=== PATIENT | female | born 1965 | race Caucasian/White ===

== ENCOUNTER 2017-04-01 12:03 | Observation (INO) | payer BC ==
[2017-04-01] MEDS ORDERED: Aspirin Low Dose CHEW TAB* 81 MG PO ONE (12:37)
[2017-04-01] MEDS: Nitroglycerin TAB 0.4 MG* 0.4 MG TAB SL ONE ×2 (12:43→12:53)
[2017-04-01 12:52] LABS: ABS Basophils 0 10^3/ul (0-0.2); ABS Eosinophils 0 10^3/ul (0-0.6); ABS Lymphocytes 1.8 10^3/ul (1.0-4.8); ABS Monocytes 0.4 10^3/ul (0-0.8); ABS Neutrophils 5.9 10^3/ul (1.5-7.7); ABS Nucleated RBC 0 10^3/ul; Eosinophil % 0.2 % (0-6); Hematocrit 45 % (35-47); Hemoglobin 15.5 g/dl (12.0-16.0); Lymphocyte % 21.7 % (25-47); Mean Corpuscular HGB Conc 35 g/dl (31-36); Mean Corpuscular Hemoglobin 29 pg (27-31); Mean Corpuscular Volume 84 fL (80-97); Mean Platelet Volume 9 um3 (7.4-10.4); Nucleated Red Blood Cells % 0.1; Platelet Count 308 10^3/ul (150-450); Red Blood Count 5.34 10^6/ul (4.0-5.4); Red Cell Distribution Width 14 % (10.5-15); White Blood Count 8.1 10^3/ul (3.5-10.8)
[2017-04-01 13:05] LABS: EGFR Non-African American 65.8 (>60)
[2017-04-01] MEDS ORDERED: Iodixanol* (CONTRAST) 320 MG/ML 100 ML SDV IV ONE (13:11)
--- NOTE | 2017-04-01 13:19 | RAD ---
HISTORY: chest pain COMPARISONS: None VIEWS: 1: frontal portable view of the chest at 12:20 PM FINDINGS: LINES AND TUBES: None. CARDIOMEDIASTINAL SILHOUETTE: The cardiomediastinal silhouette is normal for portable technique. PLEURA: The costophrenic angles are sharp. No pleural abnormalities are noted. LUNG PARENCHYMA: The lungs are clear. ABDOMEN: The upper abdomen is clear. There is no subphrenic gas. BONES AND SOFT TISSUES: No bone or soft tissue abnormalities are noted. IMPRESSION: NO ACTIVE CARDIOPULMONARY DISEASE.
--- NOTE | 2017-04-01 13:43 | RAD ---
INDICATION: Chest pain evaluate for pulmonary embolus. COMPARISON: Comparison is made with a prior chest x-ray study from April 01, 2017. TECHNIQUE: A CT angiogram of the chest was performed with intravenous following intravenous injection of 84 ml of Visipaque 320 nonionic contrast. Contiguous axial sections were obtained from the lung apices through the lung bases. Images were reconstructed in the coronal and sagittal planes. FINDINGS: There is relatively homogeneous opacification of the pulmonary arteries. No intraluminal filling defect or pulmonary embolism is seen. The heart is within normal limits in size. No pericardial effusion is present. The thoracic aorta is normal in caliber and demonstrates homogeneous contrast opacification. No significant enlarged mediastinal or hilar lymph nodes are seen. There is mild dependent bilateral lower lobe subsegmental atelectasis. The lungs are otherwise clear. No pleural effusion or pneumothorax is seen. Images of the upper abdomen demonstrate fatty infiltration of the liver. No acute finding is seen. No significant focal osseous abnormality is seen. IMPRESSION: 1. NO EVIDENCE FOR PULMONARY EMBOLISM. 2. FATTY INFILTRATION OF THE LIVER.
[2017-04-01] MEDS ORDERED: Nitroglycerin 2% OINT* 1 GM PAK TOPICAL ONE (14:18)
[2017-04-01] MEDS ORDERED: oxyCODONE/Acetamin 5/325 MG* TAB PO ONE (17:40)
[2017-04-01] MEDS ORDERED: Acetaminophen TAB* 325 MG PO PRN (17:40)
[2017-04-01] MEDS: NS 0.9% 1000 ML* 1,000 ML IV SCH ×2 (19:17→20:32)
[2017-04-01] MEDS: Heparin VIAL(*) 5000 UNITS/ML VIAL (FIVE THOUSAND) SUBCUT SCH (20:56)
--- NOTE | 2017-04-01 21:31 | HP ---
CC: Dr. Hans Munoz; Dr. Yoon, Cardiology, [place], [place]* HISTORY AND PHYSICAL: DATE OF ADMISSION: 04/01/17 PRIMARY CARE PROVIDER: Dr. Hans Munoz. CHIEF COMPLAINT: Chest pain. HISTORY OF PRESENT ILLNESS: Yee Galicia is a 51-year-old female with history of obesity, diabetes, hypertension who presents to [facility] complaining of chest pain. The patient stated that initially chest pain occurred with exercise when she was shoveling snow a couple of days ago. She stated it resolved after she stopped shoveling snow and she was okay until today when she was sitting at the desk at her work place and started developing chest pain. This chest pain was localized in the left shoulder, radiating to the left jaw and her left chest. That occurred together with shortness of breath, lasted approximately a couple of hours, and resolved after aspirin and nitroglycerin that she received in the emergency department. The patient is going to be placed on overnight observation with a diagnosis of chest pain, to rule out angina. PAST MEDICAL HISTORY: Includes: 1. History of nonobstructive coronary artery disease with cardiac catheterization in 2016 in [facility] in [place], which showed stenosis of 30% to 50% of coronary arteries. 2. History of diabetes type 2. 3. Hypertension. 4. Dyslipidemia. 5. Obesity. 6. Status post cholecystectomy. 7. History of lower back surgery and diskectomy. 8. History of ovarian cyst resection in the 1980s. MEDICATIONS: Include: 1. Aspirin 81 mg daily. 2. Lisinopril/hydrochlorothiazide 20/25 mg daily. 3. Lipitor 80 mg daily. 4. Metformin 1000 mg b.i.d. ALLERGIES: NITROFURANTOIN. FAMILY HISTORY: Positive for father who of complication of prostate cancer in his 70s. Mother suddenly at the age of 64 of "natural causes." She has history of mitral valve prolapse. SOCIAL HISTORY: The patient denies tobacco, alcohol or drug use. She works in an office. Her surrogate is her . REVIEW OF SYSTEMS: Please see history of present illness. The patient said that she went through "walking pneumonia" within the past month and she still has occasional dry cough. She stated that she was treated with antibiotics for that. All the remaining 12 systems were reviewed with the patient and were otherwise negative. PHYSICAL EXAMINATION GENERAL: The patient is a very pleasant 51-year-old female with a BMI of 36. The patient is in no acute distress. Alert, awake and oriented x3. VITAL SIGNS: Blood pressure 114/76, heart rate of 100 and regular, respiratory rate 21, oxygen saturation 95% on room air, temperature of 98.4. HEENT: Head: Atraumatic, normocephalic. Eyes: Pupils equal, round, and reactive to light and accommodation. Oropharynx clear. Mucosa moist. NECK: Supple. No JVD. No bruits bilaterally. RESPIRATORY: Clear to auscultation bilaterally. CARDIOVASCULAR: Regular rate and rhythm. No murmur. ABDOMEN: Soft and nontender. Bowel sounds present in all 4 quadrants. EXTREMITIES: There is no edema. Pulses +2 bilaterally. There is no clubbing, cyanosis. NEUROLOGIC: Speech clear. Cranial nerves II through XII grossly intact. Motor strength is 5/5 bilaterally. LABORATORY DATA AND STUDIES PERFORMED DURING THE HOSPITAL STAY: Included: CT angiogram performed in the ED shows "no evidence of pulmonary embolism. Fatty infiltration of the liver." Sodium was 135, potassium 3.8, chloride 100, carbon dioxide 21, BUN 16, creatinine of 0.9. Lactic acid of 2.4. Liver function is unremarkable. Troponin of 0. CBC: White blood cell count of 8.1, hemoglobin 15.5, hematocrit of 45 and platelets of 308,000. The patient's EKG showed sinus tachycardia with heart rate of 114 beats per minute with no ST changes. ASSESSMENT AND PLAN: 1. In regards to the patient's exertional chest pain, the patient is going to be placed in overnight observation with telemetry monitored bed. The patient will undergo a treadmill Myoview stress test in the morning. The patient has history of nonobstructive coronary artery disease in 2016. We will continue aspirin for the time being. 2. In regards to the patient's dyslipidemia, Lipitor is going to be continued and fasting lipid profile is going to be obtained in the morning. 3. In regards to the patient's diabetes, the patient had been on metformin. It appears that her lactic acid is mildly elevated, could be due to metformin. That is going to be held. She is going to be placed on insulin lispro sliding scale. I will check lactic acid level within the next hour. 4. For DVT prophylaxis, the patient is at low risk and ambulation is going to be encouraged. 5. The patient's code status is full and her surrogate is her . TIME SPENT: Approximately 55 minutes was spent on admission of this patient, more than half that time was spent [id number] with the patient doing the interview and physical exam. [id number]/[facility] #: [id number] MTDD
[2017-04-02] MEDS: Heparin VIAL(*) 5000 UNITS/ML VIAL (FIVE THOUSAND) SUBCUT SCH ×2 (05:48→14:35)
[2017-04-02 06:31] LABS: EGFR Non-African American 70.2 (>60)
[2017-04-02] MEDS ORDERED: Lisinopril/HCTZ 20/25(NF) TAB PO SCH (09:00)
[2017-04-02] MEDS ORDERED: Atorvastatin* 80 MG TAB PO SCH (09:00)
[2017-04-02] MEDS ORDERED: Hydrochlorothiazide TAB* 25 MG PO SCH (09:00)
[2017-04-02] MEDS ORDERED: Lisinopril TAB* 10 MG PO SCH (09:00)
--- NOTE | 2017-04-02 13:39 | RAD ---
INDICATION: Chest pain COMPARISON: CTA chest previous day TECHNIQUE: A single day SPECT protocol was utilized. Rest images were acquired following the intravenous injection of 10.2 millicuries of technetium 99m tetrofosmin. Pharmacologic stress images were acquired following the intravenous administration of 25.7 millicuries of technetium 99m tetrofosmin. The patient was exercised to a peak heart rate of 160 which is 95 of age predicted maximum. FINDINGS: There are no defects of the stress-induced or fixed nature. The cardiac chamber size is normal. There are no wall motion abnormalities. The ejection fraction is calculated at 81 percent during stress. IMPRESSION: NORMAL STUDY ASSESSMENT: LOW-RISK Based on imaging criteria from ACC/AHA 2002 Guideline Update for the Management of Patients With Chronic Stable Angina Table 23. Noninvasive Risk Stratification.
[2017-04-02 15:39] VITALS: BP 110/54
--- NOTE | 2017-04-03 02:25 | DS ---
CC: Dr. Munoz * DISCHARGE SUMMARY: DATE OF ADMISSION: 04/01/17 DATE OF DISCHARGE: 04/02/17 PRIMARY CARE PROVIDER: Dr. Munoz. DISCHARGE DIAGNOSIS: Chest pain with low probability cardiac stress test documented on 04/02/17. SECONDARY DIAGNOSES: 1. History of nonobstructive coronary artery disease with stenosis of 30% to 50 % documented on cardiac catheterization in 2016. 2. History of diabetes type 2. 3. Dyslipidemia. 4. Hypertension. 5. Obesity. MEDICATIONS AT DISCHARGE: Are unchanged from admission and include: 1. Aspirin 81 mg daily. 2. Lisinopril/hydrochlorothiazide 20/25 mg daily. 3. Lipitor 80 mg daily. 4. Metformin 1000 mg b.i.d. The patient was instructed not to use her metformin for another 48 hours to complete a total hold time of [address] angiogram of the chest obtained at admission. LABORATORY DATA DURING HOSPITAL STAY: Included: On 04/02/17, sodium of 137, potassium 4.0, chloride 104, carbon dioxide 23, BUN 19, creatinine 0.85. Liver function tests were unremarkable at admission. The patient's lactic acid was transiently elevated up to 3.2 on 04/01/17 and resolved after intravenous hydration. Triglycerides were 154, cholesterol total of 116, LDL of 42, and HDL of 43. CT angiogram of the chest obtained on 04/01/17 showed "no evidence for pulmonary embolism. Fatty infiltration of the liver." Nuclear medicine cardiac stress test documented on 04/02/17 showed "low risk. There were normal wall motion abnormalities. The ejection fraction was calculated at 81% during stress test." HOSPITALIZATION COURSE: Yee Galicia is a 51-year-old female with history of obesity and diabetes, who presented complaining of chest pain that occurred when she was sitting at a computer desk. Chest pain was relieved by nitroglycerin and aspirin. The patient has history of nonobstructive coronary artery disease. Cardiac catheterization was done in 2016. The patient was observed on telemetry monitored bed. She had no arrhythmias overnight and her troponins continued to be negative. Interestingly enough, the patient's lactic acid was mildly elevated at 2.4, it went up to 3.2 and resolved after 1 L of intravenous hydration. It is possible that the patient was mildly dehydrated from her stay in the emergency department and admission. Her metformin was held during her hospital stay due to the CT angiogram that she received, which was negative for PE. Her cardiac stress test showed mild hypertensive response , likely due to that her blood pressure medications were held prior to the test. Her stress test showed to be low risk. The patient is going to be discharged from the hospital to follow up with her primary care provider in approximately 4 to 7 days. She is recommended to restart her metformin 2 days after her discharge. Physical examination at discharge is unchanged from admission. [id number]/[facility] #: [id number] TYSHAWN
== END 2017-04-02 16:05 | disposition home or self-care (01) ==
LOC: ED 12:03 → MEDTELE 14:43
PROVIDERS: ADMIT Internal Medicine; ATTEND Internal Medicine
DX: R07.9 Chest pain, unspecified (principal); E11.9 Type 2 diabetes mellitus without complications; E78.5 Hyperlipidemia, unspecified; I10 Essential (primary) hypertension; E66.9 Obesity, unspecified; Z79.82 Long term (current) use of aspirin; Z90.49 Acquired absence of other specified parts of digestive tract; Z85.43 Personal history of malignant neoplasm of ovary
CPT/HCPCS: 36415; 71045; 71275; 78452; 80048; 80053; 80061; 83605; 84484; 85025; 93005; 93017; 99283; A9270-GY; A9502; G0378; J1644; Q9967